=== PATIENT | female | born 1975 | race Caucasian/White ===

== ENCOUNTER 2016-10-20 14:00 | Emergency (ER) | payer OTHER ==
[2016-10-20] MEDS ORDERED: METOCLOPRAMIDE INJ 10MG/2ML VIAL (J2765) As Ordered ONE (15:51)
[2016-10-20] MEDS ORDERED: KETOROLAC 30 MG/ML VIAL (J1885) As Ordered ONE (15:52)
[2016-10-20] MEDS ORDERED: diphenhydrAMINE INJ 50MG/ML VIAL (J1200) As Ordered ONE (15:52)
--- NOTE | 2016-10-20 17:14 | EDDOCDS ---
Nurse's Notes [facility] Name: Edwina Castro Age: 41 yrs Sex: Female : 1975 Arrival Date: 10/20/2016 Time: 14:00 Bed I8 / 16 Private MD: Humza Rush Diagnosis: Migraine Presentation: 10/20 14:07 Presenting complaint: Patient states: "migraine" since this past night. This jjr patient has no additional risk factors. Adult Sepsis Screening: The patient does not have new or worsening altered mentation. Patient's respiratory rate is less than 22. Systolic blood pressure is greater than 100. Patient has a qSOFA score of 0- Negative Sepsis Screen. Suicide/Homicide risk assessment- the patient denies having any suicidal and/or homicidal ideations and does not present with any other emotional, behavioral or mental health complaints. Status: Patient is not a emergency medical service manager or dependent. Transition of care: patient was not received from another setting of care. 14:07 Acuity: MARY ANNE Level 4 r 14:07 Method Of Arrival: Walkin/Carried/Asstd jjr Triage Assessment: 14:09 Headache History: This headache is like all previous headaches. General: Appears jjr uncomfortable. Pain: Pain currently is 8 out of 10 on a pain scale. Pain began 2-3 days ago Also complains of nausea. HIV screening NA for this visit Offered previously. Neurological: No deficits noted. Reports headache. 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 Excederin Migraine 2 tabs as needed every 6 hours (Last dose: 10/20/2016 10:00) 2. Naprosyn 500 mg Oral tab 1 tab every 12 hours as needed (Last dose: 10/20/2016 10:00) - PMHx: Asthma; Migraines; - PSHx: Breast biopsy- Left; - Social history: Smoking status: Patient states was never smoker of tobacco. No barriers to communication noted, The patient speaks fluent [place] Rican. - Family history: Not pertinent. - : The pt / caregiver states he / she is not on anticoagulants. Home medication list is obtained from the patient. - Exposure Risk Screening:: None identified. Screenin:12 Screening information is obtained from the patient. Fall risk: No risks identified. dls Assistance ADL's: requires no assistance with activities of daily living. Abuse/DV Screen: The patient / caregiver reports he/she is: not in a situation that causes fear, pain or injury. Nutritional screening: No deficits noted. Advance Directives: Currently, there is no health care proxy. There is no active DNR order. There is no living will. There is no Power of Coke Still Cleaner. Advance directive information has not previously been placed in an [facility] medical record. home support is adequate. Assessment: 16:10 General: Appears distressed, well developed, well nourished, well groomed, Behavior is dls cooperative. Pain: Pain currently is 7 out of 10 on a pain scale. Cardiovascular: No deficits noted. Respiratory: No deficits noted. GI: Reports nausea. : No deficits noted. Derm: No deficits noted. Musculoskeletal: No deficits noted. Vital Signs: 14:01 BP 126 / 81; Pulse 94; Resp 18 S; Temp 97.8(O); Pulse Ox 98% on R/A; Weight 76.2 kg dd6 (R); Height 5 ft. 3 in. (160.02 cm) (R); 17:03 BP 105 / 65; Pulse 74; Resp 16; Temp 97.5; Pulse Ox 100% ; Pain 2/10; jlf 14:01 Body Mass Index 29.76 (76.20 kg, 160.02 cm) dd6 Vitals: 14:01 Log In Time: October 20, 2016 at 14:00. dd6 ED Course: 14:01 Patient visited by Osman Georges PCA. dd6 14:01 Humza Rush is Private Physician. dd6 14:01 Patient moved to Waiting dd6 14:02 Patient moved to Pre RCE dd6 14:08 Triage Initiated jjr 14:57 Patient moved to I8 / 16 ar3 15:29 [facility]. ke 15:29 Patient visited by Cristi Vega FNP. ke 15:29 Patient visited by Cristi Vega FNP. ke 15:56 Patient visited by Chica Hampton PCA. jlf 16:12 The patient / caregiver is instructed regarding the plan of care and ED course. Patient dls has correct armband on for positive identification. Bed in low position. Call light in reach. 16:12 Inserted saline lock: 20 gauge in left antecubital area and blood collected. The dls patient tolerated the procedure well. 16:20 Patient visited by Cristi Vega FNP. ke 16:49 Patient visited by Cristi Vega FNP. ke 17:01 Humza Rush is Referral Physician. ke 17:03 Patient visited by Chica Hampton, SERVER SECURITY ADMINISTRATOR. angela 17:04 Patient visited by Chica Hampton, TARA. jl 17:11 Discontinued IV lock intact, bleeding controlled, pressure dressing applied, No dls redness/swelling at site. No procedures done that require assistance. Administered Medications: 16:08 Drug: diphenhydrAMINE 50 mg [diphenhydramine 50 mg/mL injection solution (1 mL)] Route: dls IVP; Site: left antecubital; 17:10 Follow up: Response: Pain is decreased dls 16:08 Drug: ketorolac 30 mg [ketorolac 30 mg/mL (1 mL) injection solution (1 mL)] Route: IVP; dls Site: left antecubital; 17:10 Follow up: Response: Pain is decreased dls 16:09 Drug: NS 0.9% 1000 ml [sodium chloride 0.9 % intravenous solution] Route: IV; Rate: dls bolus; Site: left antecubital; 17:11 Follow up: IV Status: Completed infusion dls 16:09 Drug: Metoclopramide 10 mg [metoclopramide 5 mg/mL injection solution] Route: IV; Rate: dls 40 mg/hr; Infused Over: 15 mins; Site: left antecubital; 16:42 Follow up: IV Status: Completed infusion dls 17:11 Follow up: IV Status: Completed infusion dls Order Results: There are currently no results for this order. Outcome: 17:01 Discharge ordered by Provider. ke 17:12 Discharge Assessment: Patient awake, alert and oriented x 3. No cognitive and/or dls functional deficits noted. Patient verbalized understanding of disposition instructions. patient administered narcotics - no. The following High Risk Discharge criteria are identified: None. Discharged to home ambulatory. Condition: stable Condition: improved. Discharge instructions given to patient, Instructed on discharge instructions, follow up and referral plans. medication usage, Demonstrated understanding of instructions, medications, Pt was receptive of discharge instructions/ teaching. Prescriptions given X 1. No special radiology studies were completed. Property sent home with patient. 17:12 Patient left the ED. dls Signatures: Deisi Ching, RN RN dls Cristi Vega, PRESS OPERATOR PRESS OPERATOR Shonda Diaz RN RN deepr Osman Georges, SERVER SECURITY ADMINISTRATOR SERVER SECURITY ADMINISTRATOR dd6 Bianca Carmichael, SERVER SECURITY ADMINISTRATOR SERVER SECURITY ADMINISTRATOR ar3 Chica Hampton, SERVER SECURITY ADMINISTRATOR SERVER SECURITY ADMINISTRATOR jlf MTDD
--- NOTE | 2016-10-20 17:14 | EDDOCDS ---
Physician Documentation [facility] Name: Edwina Castro Age: 41 yrs Sex: Female : 1975 Arrival Date: 10/20/2016 Time: 14:00 Bed I8 / 16 Private MD: Humza Rush Disposition: 10/20/16 17:01 Discharged to Home/Self Care. Impression: Migraine. - Condition is Stable. - Discharge Instructions: Migraine Headache. - Prescriptions for Reglan 10 mg Oral Tablet - take 1 tablet by ORAL route every 6 hours take 30 minutes before meals and at bedtime; 20 tablet. - Medication Reconciliation, Local Pharmacy Hours form. - Follow up: Humza Rush; When: 4 - 5 days; Reason: Recheck today's complaints, Continuance of care. - Problem is an acute exacerbation. - Symptoms have improved. Historical: - Allergies: Bactrim (Hives); Levaquin (Hives); - Home Meds: 1. Excederin Migraine 2 tabs as needed every 6 hours (Last dose: 10/20/2016 10:00) 2. Naprosyn 500 mg Oral tab 1 tab every 12 hours as needed (Last dose: 10/20/2016 10:00) - PMHx: Asthma; Migraines; - PSHx: Breast biopsy- Left; - Social history: Smoking status: Patient states was never smoker of tobacco. No barriers to communication noted, The patient speaks fluent South African. - Family history: Not pertinent. - : The pt / caregiver states he / she is not on anticoagulants. Home medication list is obtained from the patient. - Exposure Risk Screening:: None identified. 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 3 in. (160.02 cm) (R); 17:03 BP 105 / 65; Pulse 74; Resp 16; Temp 97.5; Pulse Ox 100% ; Pain 2/10; jlf 14:01 Body Mass Index 29.76 (76.20 kg, 160.02 cm) dd6 MDM: 15:46 NS 0.9% 1000 ml IV at bolus once ordered. ke 15:46 IV Saline Lock ordered. ke 15:46 Metoclopramide 10 mg IV at 40 mg/hr once over 15 mins ordered. ke 15:46 diphenhydrAMINE 50 mg IVP once ordered. ke 15:46 ketorolac 30 mg IVP once ordered. ke 16:40 Financial registration complete. zo Administered Medications: 16:08 Drug: diphenhydrAMINE 50 mg [diphenhydramine 50 mg/mL injection solution (1 mL)] Route: dls IVP; Site: left antecubital; 17:10 Follow up: Response: Pain is decreased dls 16:08 Drug: ketorolac 30 mg [ketorolac 30 mg/mL (1 mL) injection solution (1 mL)] Route: IVP; dls Site: left antecubital; 17:10 Follow up: Response: Pain is decreased dls 16:09 Drug: NS 0.9% 1000 ml [sodium chloride 0.9 % intravenous solution] Route: IV; Rate: dls bolus; Site: left antecubital; 17:11 Follow up: IV Status: Completed infusion dls 16:09 Drug: Metoclopramide 10 mg [metoclopramide 5 mg/mL injection solution] Route: IV; Rate: dls 40 mg/hr; Infused Over: 15 mins; Site: left antecubital; 16:42 Follow up: IV Status: Completed infusion dls 17:11 Follow up: IV Status: Completed infusion dls Signatures: Deisi Ching RN Cristi Suazo, RELAY ENGINEER RELAY ENGINEER Manuel Powell Jessica RN RN jjr MTDD
--- NOTE | 2016-10-22 18:14 | EDDOCDS ---
Physician Documentation [facility] Name: Edwina Castro Age: 41 yrs Sex: Female : 1975 Arrival Date: 10/20/2016 Time: 14:00 Bed I8 / 16 Private MD: Humza Rush Disposition: 10/20/16 17:01 Discharged to Home/Self Care. Impression: Migraine. - Condition is Stable. - Discharge Instructions: Migraine Headache. - Prescriptions for Reglan 10 mg Oral Tablet - take 1 tablet by ORAL route every 6 hours take 30 minutes before meals and at bedtime; 20 tablet. - Medication Reconciliation, Local Pharmacy Hours form. - Follow up: Humza Rush; When: 4 - 5 days; Reason: Recheck today's complaints, Continuance of care. - Problem is an acute exacerbation. - Symptoms have improved. Historical: - Allergies: Bactrim (Hives); Levaquin (Hives); - Home Meds: 1. Excederin Migraine 2 tabs as needed every 6 hours (Last dose: 10/20/2016 10:00) 2. Naprosyn 500 mg Oral tab 1 tab every 12 hours as needed (Last dose: 10/20/2016 10:00) - PMHx: Asthma; Migraines; - PSHx: Breast biopsy- Left; - Social history: Smoking status: Patient states was never smoker of tobacco. No barriers to communication noted, The patient speaks fluent [place]. - Family history: Not pertinent. - : The pt / caregiver states he / she is not on anticoagulants. Home medication list is obtained from the patient. - Exposure Risk Screening:: None identified. 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 3 in. (160.02 cm) (R); 17:03 BP 105 / 65; Pulse 74; Resp 16; Temp 97.5; Pulse Ox 100% ; Pain 2/10; jlf 14:01 Body Mass Index 29.76 (76.20 kg, 160.02 cm) dd6 MDM: 15:46 NS 0.9% 1000 ml IV at bolus once ordered. ke 15:46 IV Saline Lock ordered. ke 15:46 Metoclopramide 10 mg IV at 40 mg/hr once over 15 mins ordered. ke 15:46 diphenhydrAMINE 50 mg IVP once ordered. ke 15:46 ketorolac 30 mg IVP once ordered. ke 16:40 Financial registration complete. zo 17:23 [facility] [place] Agreement was scanned into [employer] and attached to record. zo 20:27 T-Sheet-- Draft Copy was scanned into [employer] and attached to record. klr Administered Medications: 16:08 Drug: diphenhydrAMINE 50 mg [diphenhydramine 50 mg/mL injection solution (1 mL)] Route: dls IVP; Site: left antecubital; 17:10 Follow up: Response: Pain is decreased dls 16:08 Drug: ketorolac 30 mg [ketorolac 30 mg/mL (1 mL) injection solution (1 mL)] Route: IVP; dls Site: left antecubital; 17:10 Follow up: Response: Pain is decreased dls 16:09 Drug: NS 0.9% 1000 ml [sodium chloride 0.9 % intravenous solution] Route: IV; Rate: dls bolus; Site: left antecubital; 17:11 Follow up: IV Status: Completed infusion dls 16:09 Drug: Metoclopramide 10 mg [metoclopramide 5 mg/mL injection solution] Route: IV; Rate: dls 40 mg/hr; Infused Over: 15 mins; Site: left antecubital; 16:42 Follow up: IV Status: Completed infusion dls 17:11 Follow up: IV Status: Completed infusion dls Signatures: Deisi Ching RN RN Cristi Pitts, COMMUNICATIONS SUPERINTENDENT COMMUNICATIONS SUPERINTENDENT Manuel Powell Jessica RN RN Juliet Hamilton The chart was reviewed and I authenticate all verbal orders and agree with the evaluation and treatment provided.Attachments: 17:23 [facility] Payment Agreement zo 20:27 T-Sheet-- Draft Copy klr Chart Complete MTDD
--- NOTE | 2016-10-22 18:14 | EDDOCDS ---
Physician Documentation [facility] Name: Edwina Castro Age: 41 yrs Sex: Female : 1975 Arrival Date: 10/20/2016 Time: 14:00 Bed I8 / 16 Private MD: Humza Rush Disposition: 10/20/16 17:01 Discharged to Home/Self Care. Impression: Migraine. - Condition is Stable. - Discharge Instructions: Migraine Headache. - Prescriptions for Reglan 10 mg Oral Tablet - take 1 tablet by ORAL route every 6 hours take 30 minutes before meals and at bedtime; 20 tablet. - Medication Reconciliation, Local Pharmacy Hours form. - Follow up: Humza Rush; When: 4 - 5 days; Reason: Recheck today's complaints, Continuance of care. - Problem is an acute exacerbation. - Symptoms have improved. Historical: - Allergies: Bactrim (Hives); Levaquin (Hives); - Home Meds: 1. Excederin Migraine 2 tabs as needed every 6 hours (Last dose: 10/20/2016 10:00) 2. Naprosyn 500 mg Oral tab 1 tab every 12 hours as needed (Last dose: 10/20/2016 10:00) - PMHx: Asthma; Migraines; - PSHx: Breast biopsy- Left; - Social history: Smoking status: Patient states was never smoker of tobacco. No barriers to communication noted, The patient speaks fluent Mongolian. - Family history: Not pertinent. - : The pt / caregiver states he / she is not on anticoagulants. Home medication list is obtained from the patient. - Exposure Risk Screening:: None identified. 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 3 in. (160.02 cm) (R); 17:03 BP 105 / 65; Pulse 74; Resp 16; Temp 97.5; Pulse Ox 100% ; Pain 2/10; jlf 14:01 Body Mass Index 29.76 (76.20 kg, 160.02 cm) dd6 MDM: 15:46 NS 0.9% 1000 ml IV at bolus once ordered. ke 15:46 IV Saline Lock ordered. ke 15:46 Metoclopramide 10 mg IV at 40 mg/hr once over 15 mins ordered. ke 15:46 diphenhydrAMINE 50 mg IVP once ordered. ke 15:46 ketorolac 30 mg IVP once ordered. ke 16:40 Financial registration complete. zo 17:23 [facility] Payment Agreement was scanned into [employer] and attached to record. zo 20:27 T-Sheet-- Draft Copy was scanned into [employer] and attached to record. klr Administered Medications: 16:08 Drug: diphenhydrAMINE 50 mg [diphenhydramine 50 mg/mL injection solution (1 mL)] Route: dls IVP; Site: left antecubital; 17:10 Follow up: Response: Pain is decreased dls 16:08 Drug: ketorolac 30 mg [ketorolac 30 mg/mL (1 mL) injection solution (1 mL)] Route: IVP; dls Site: left antecubital; 17:10 Follow up: Response: Pain is decreased dls 16:09 Drug: NS 0.9% 1000 ml [sodium chloride 0.9 % intravenous solution] Route: IV; Rate: dls bolus; Site: left antecubital; 17:11 Follow up: IV Status: Completed infusion dls 16:09 Drug: Metoclopramide 10 mg [metoclopramide 5 mg/mL injection solution] Route: IV; Rate: dls 40 mg/hr; Infused Over: 15 mins; Site: left antecubital; 16:42 Follow up: IV Status: Completed infusion dls 17:11 Follow up: IV Status: Completed infusion dls Signatures: Deisi Ching RN RN Cristi Pitts, PHARMACIST IN CHARGE PHARMACIST IN CHARGE Manuel Powell Jessica RN RN Juliet Hamilton The chart was reviewed and I authenticate all verbal orders and agree with the evaluation and treatment provided.Attachments: 17:23 [facility] Payment Agreement zo 20:27 T-Sheet-- Draft Copy klr Chart Complete MTDD
--- NOTE | 2016-10-22 18:14 | EDDOCDS ---
Nurse's Notes [facility] Name: Edwina Castro Age: 41 yrs Sex: Female : 1975 Arrival Date: 10/20/2016 Time: 14:00 Bed I8 / 16 Private MD: Humza Rush Diagnosis: Migraine Presentation: 10/20 14:07 Presenting complaint: Patient states: "migraine" since this past night. This jjr patient has no additional risk factors. Adult Sepsis Screening: The patient does not have new or worsening altered mentation. Patient's respiratory rate is less than 22. Systolic blood pressure is greater than 100. Patient has a qSOFA score of 0- Negative Sepsis Screen. Suicide/Homicide risk assessment- the patient denies having any suicidal and/or homicidal ideations and does not present with any other emotional, behavioral or mental health complaints. 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 Transition of care: patient was not received from another setting of care. 14:07 Acuity: MARY ANNE Level 4 r 14:07 Method Of Arrival: Walkin/Carried/Asstd jjr Triage Assessment: 14:09 Headache History: This headache is like all previous headaches. General: Appears jjr uncomfortable. Pain: Pain currently is 8 out of 10 on a pain scale. Pain began 2-3 days ago Also complains of nausea. HIV screening NA for this visit Offered previously. Neurological: No deficits noted. Reports headache. 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 Excederin Migraine 2 tabs as needed every 6 hours (Last dose: 10/20/2016 10:00) 2. Naprosyn 500 mg Oral tab 1 tab every 12 hours as needed (Last dose: 10/20/2016 10:00) - PMHx: Asthma; Migraines; - PSHx: Breast biopsy- Left; - Social history: Smoking status: Patient states was never smoker of tobacco. No barriers to communication noted, The patient speaks fluent Bhutanese. - Family history: Not pertinent. - : The pt / caregiver states he / she is not on anticoagulants. Home medication list is obtained from the patient. - Exposure Risk Screening:: None identified. Screenin:12 Screening information is obtained from the patient. Fall risk: No risks identified. dls Assistance ADL's: requires no assistance with activities of daily living. Abuse/DV Screen: The patient / caregiver reports he/she is: not in a situation that causes fear, pain or injury. Nutritional screening: No deficits noted. Advance Directives: Currently, there is no health care proxy. There is no active DNR order. There is no living will. There is no Power of Commissary Steward. Advance directive information has not previously been placed in an [facility] medical record. home support is adequate. Assessment: 16:10 General: Appears distressed, well developed, well nourished, well groomed, Behavior is dls cooperative. Pain: Pain currently is 7 out of 10 on a pain scale. Cardiovascular: No deficits noted. Respiratory: No deficits noted. GI: Reports nausea. : No deficits noted. Derm: No deficits noted. Musculoskeletal: No deficits noted. Vital Signs: 14:01 BP 126 / 81; Pulse 94; Resp 18 S; Temp 97.8(O); Pulse Ox 98% on R/A; Weight 76.2 kg dd6 (R); Height 5 ft. 3 in. (160.02 cm) (R); 17:03 BP 105 / 65; Pulse 74; Resp 16; Temp 97.5; Pulse Ox 100% ; Pain 2/10; jlf 14:01 Body Mass Index 29.76 (76.20 kg, 160.02 cm) dd6 Vitals: 14:01 Log In Time: October 20, 2016 at 14:00. dd6 ED Course: 14:01 Patient visited by Osman Georges PCA. dd6 14:01 Humza Rush is Private Physician. dd6 14:01 Patient moved to Waiting dd6 14:02 Patient moved to Pre RCE dd6 14:08 Triage Initiated jjr 14:57 Patient moved to I8 / 16 ar3 15:29 [facility]. ke 15:29 Patient visited by Cristi Vega FNP. ke 15:29 Patient visited by Cristi Vega FNP. ke 15:56 Patient visited by Chica Hampton PCA. jlf 16:12 The patient / caregiver is instructed regarding the plan of care and ED course. Patient dls has correct armband on for positive identification. Bed in low position. Call light in reach. 16:12 Inserted saline lock: 20 gauge in left antecubital area and blood collected. The dls patient tolerated the procedure well. 16:20 Patient visited by Cristi Vega FNP. ke 16:49 Patient visited by Cristi Vega FNP. ke 17:01 Humza Rush is Referral Physician. ke 17:03 Patient visited by Chica Hampton, LINOTYPE OPERATOR. angela 17:04 Patient visited by Chica Hampton, TARA. jlf 17:11 Discontinued IV lock intact, bleeding controlled, pressure dressing applied, No dls redness/swelling at site. No procedures done that require assistance. 17:23 [facility] [place] was scanned into [employer] and attached to record. zo 20:27 T-Sheet-- Draft Copy was scanned into [employer] and attached to record. klr Administered Medications: 16:08 Drug: diphenhydrAMINE 50 mg [diphenhydramine 50 mg/mL injection solution (1 mL)] Route: dls IVP; Site: left antecubital; 17:10 Follow up: Response: Pain is decreased dls 16:08 Drug: ketorolac 30 mg [ketorolac 30 mg/mL (1 mL) injection solution (1 mL)] Route: IVP; dls Site: left antecubital; 17:10 Follow up: Response: Pain is decreased dls 16:09 Drug: NS 0.9% 1000 ml [sodium chloride 0.9 % intravenous solution] Route: IV; Rate: dls bolus; Site: left antecubital; 17:11 Follow up: IV Status: Completed infusion dls 16:09 Drug: Metoclopramide 10 mg [metoclopramide 5 mg/mL injection solution] Route: IV; Rate: dls 40 mg/hr; Infused Over: 15 mins; Site: left antecubital; 16:42 Follow up: IV Status: Completed infusion dls 17:11 Follow up: IV Status: Completed infusion dls Order Results: There are currently no results for this order. Outcome: 17:01 Discharge ordered by Provider. ke 17:12 Discharge Assessment: Patient awake, alert and oriented x 3. No cognitive and/or dls functional deficits noted. Patient verbalized understanding of disposition instructions. patient administered narcotics - no. The following High Risk Discharge criteria are identified: None. Discharged to home ambulatory. Condition: stable Condition: improved. Discharge instructions given to patient, Instructed on discharge instructions, follow up and referral plans. medication usage, Demonstrated understanding of instructions, medications, Pt was receptive of discharge instructions/ teaching. Prescriptions given X 1. No special radiology studies were completed. Property sent home with patient. 17:12 Patient left the ED. dls Signatures: Deisi Ching, LALY RN Cristi Pitts, FOOT MITER OPERATOR FOOT MITER OPERATOR Manuel Powell Jessica, RN RN Osman Osborne, LINOTYPE OPERATOR LINOTYPE OPERATOR dd6 Bianca Carmichael, LINOTYPE OPERATOR LINOTYPE OPERATOR ar3 Chica Hampton, LINOTYPE OPERATOR LINOTYPE OPERATOR Juliet Spears Chart Complete MTDEmerald
== END 2016-10-20 17:12 | disposition home or self-care (01) ==
LOC: M ED 14:00
DX: G43.909 Migraine, unspecified, not intractable, without status migrainosus (principal); J45.909 Unspecified asthma, uncomplicated; Z88.1 Allergy status to other antibiotic agents
CPT/HCPCS: 36415; 96365; 96375; 99284; J1200; J1885; J2765

== ENCOUNTER 2016-11-14 14:50 | Emergency (ER) | payer OTHER ==
[2016-11-14] MEDS ORDERED: diphenhydrAMINE INJ 50MG/ML VIAL (J1200) As Ordered ONE (16:09)
[2016-11-14] MEDS ORDERED: MORPHINE 4 MG/ML 1ML SYRINGE As Ordered ONE (16:09)
[2016-11-14] MEDS ORDERED: METOCLOPRAMIDE INJ 10MG/2ML VIAL (J2765) As Ordered ONE (16:09)
--- NOTE | 2016-11-14 17:38 | EDDOCDS ---
Nurse's Notes [facility] Name: Edwina Castro Age: 41 yrs Sex: Female : 1975 Arrival Date: 11/14/2016 Time: 14:50 Bed I5 / M5 Private MD: [facility] - [facility] Diagnosis: Migraine without aura, not intractable Presentation: 11/14 15:04 Presenting complaint: Patient states: migraine headache since Friday night today felt [facility] like she was going to pass out. has f/u appt with Dr Gonzales 12-13-16. This patient has no additional risk factors. Adult Sepsis Screening: The patient does not have new or worsening altered mentation. Patient's respiratory rate is less than 22. Systolic blood pressure is greater than 100. Patient has a qSOFA score of 0- Negative Sepsis Screen. Suicide/Homicide risk assessment- the patient denies having any suicidal and/or homicidal ideations and does not present with any other emotional, behavioral or mental health complaints. 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 Transition of care: patient was not received from another setting of care. 15:04 Acuity: MARY ANNE Level 3 [facility] 15:04 Method Of Arrival: Walkin/Carried/Asstd [facility] Triage Assessment: 15:07 Headache History: This headache is like all previous headaches. General: Appears [facility] uncomfortable, Behavior is appropriate for age, pleasant. Pain: Location: entire head and back of neck Pain currently is 7 out of 10 on a pain scale. Pt Declines HIV testing. Neurological: Level of Consciousness is awake, alert, Oriented to person, place, time, Reports headache lightheaded. Respiratory: Airway is patent Respiratory effort is even, unlabored, Respiratory pattern is regular, symmetrical. Derm: Skin is pink, warm & dry. 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 Excederin Migraine 2 tabs as needed every 6 hours as needed (Last dose: 11/13/2016) 2. Naprosyn 500 mg Oral tab 1 tab every 12 hours as needed (Last dose: 11/14/2016 10:00) - PMHx: Migraines; Asthma; - PSHx: Breast biopsy- Left; - Social history: Smoking status: Patient states was never smoker of tobacco. No barriers to communication noted, The patient speaks fluent Nigerien. - : The pt / caregiver states he / she is not on anticoagulants. Home medication list is obtained from the patient. - Exposure Risk Screening:: None identified. Screenin:45 Screening information is obtained from the patient. Primary language is Nigerien. Fall jam1 risk: No risks identified. Assistance ADL's: requires no assistance with activities of daily living. Abuse/DV Screen: The patient / caregiver reports he/she is: not in a situation that causes fear, pain or injury. Nutritional screening: No deficits noted. Exposure Risk Screening: None identified. Advance Directives: Currently, there is no health care proxy. There is no active DNR order. There is no living will. There is no Power of Molder Shoulder Pad. Advance directive information has not previously been placed in an [facility] medical record. Further advance directive information is declined. home support is adequate. Assessment: 16:22 General: Appears in no apparent distress, well nourished, well groomed, Behavior is jjr appropriate for age. Pain: Location: entire head. Neurological: Reports headache. Respiratory: No deficits noted. GI: Reports nausea. Derm: No deficits noted. 17:21 General: Appears in no apparent distress, reports MARES 3/10. jjr Vital Signs: 14:52 BP 106 / 74; Pulse 100; Resp 18 S; Temp 98.5(O); Pulse Ox 98% on R/A; Weight 76.2 kg gr2 (R); Height 5 ft. 3 in. (160.02 cm) (R); Pain 9/10; 16:42 BP 100 / 65; Pulse 74; Resp 20; Temp 97.0; Pulse Ox 98% ; Pain 3/10; jam1 16:46 Pain 3/10; jjr 17:37 BP 100 / 61; Pulse 75; Resp 18; Temp 97.5(O); Pulse Ox 99% on R/A; Pain 3/10; jjr 14:52 Body Mass Index 29.76 (76.20 kg, 160.02 cm) gr2 Vitals: 14:52 Log In Time: November 14, 2016 at 14:52. gr2 ED Course: 14:51 Patient visited by Katerin Millan. gr2 14:51 [facility] is Private Physician. gr2 14:51 Patient moved to Waiting gr2 14:53 Patient visited by Katerin Millan. gr2 14:53 Patient moved to Pre RCE gr2 15:05 Triage Initiated kpj 15:12 Patient moved to Triage 2 [facility] 15:23 Dariana Bae [facility]-C [facility]. dt4 15:23 Kamlesh Shen MD is Attending Physician. dt4 15:23 Patient visited by Dariana Bae PA-C. dt4 15:44 Patient moved to I5 / M5 [facility] 15:45 Pt greeted and oriented to ED. Patient advised of names of staff involved in care, jam1 location of call li, wait times and NPO status. Patient has correct armband on for positive identification. Placed in gown. Bed in low position. Call light in reach. Side rails up X 1. 16:22 Patient visited by Shonda Millan RN. jjr 16:22 The patient / caregiver is instructed regarding the plan of care and ED course. jjr 16:22 Inserted saline lock: 20 gauge in left antecubital area. jjr 17:22 Patient visited by Shonda Millan RN. jjr 17:37 Discontinued lock intact, bleeding controlled, pressure dressing applied, No jjr redness/swelling at site. No procedures done that require assistance. Administered Medications: 16:21 Drug: morphine 4 mg [morphine 4 mg/mL intravenous cartridge (1 mL)] Route: IVP; Site: jjr left antecubital; 16:46 Follow up: Pain 11/29 Adult jjr 16:21 Drug: Metoclopramide 20 mg [metoclopramide 5 mg/mL injection solution] Route: IV; Rate: jjr 80 mg/hr; Infused Over: 15 mins; Site: left antecubital; Delivery: Syringe pump; 16:46 Follow up: IV Status: Completed infusion jjr 16:21 Drug: diphenhydrAMINE 12.5 mg [diphenhydramine 50 mg/mL injection solution (0.25 mL)] jjr Route: IVP; Site: left antecubital; 16:21 Drug: NS 0.9% 1000 ml [sodium chloride 0.9 % intravenous solution] Route: IV; Rate: jjr bolus; Site: left antecubital; 17:21 Follow up: IV Status: Completed infusion; IV Intake: 1000ml jjr Intake: 17:21 IV: 1000.00ml; Total: 1000.00ml. jjr Order Results: There are currently no results for this order. Outcome: 17:23 Discharge ordered by Provider. dt4 17:37 Discharge Assessment: patient administered narcotics - yes. Pt provided with safe jjr discharge. The following High Risk Discharge criteria are identified: None. Discharged to home ambulatory, with friend. Condition: stable. Discharge instructions given to patient, Instructed on discharge instructions, follow up and referral plans. Demonstrated understanding of instructions. No special radiology studies were completed. Property sent home with patient. 17:38 Patient left the ED. jjr Signatures: Romy Sanchez RN Diana Paz RN Keli Conte, TARA EARLY CHILDHOOD LEAD TEACHER jam1 Shonda Millan RN RN jjr Hafner, Jane, RN RN [facility] Katerin Millan 2 Dariana Bae PA-C PAJessica dt4 Corrections: (The following items were deleted from the chart) 15:10 15:04 Presenting complaint: Patient states: migraine headache since Friday night today ashvin felt like she was going to pass out. ashvin MTDD
--- NOTE | 2016-11-14 17:38 | EDDOCDS ---
Physician Documentation [facility] Name: Edwina Castro Age: 41 yrs Sex: Female : 1975 Arrival Date: 11/14/2016 Time: 14:50 Bed I5 / M5 Private MD: [facility] - [facility] Disposition: 11/14/16 17:23 Discharged to Home/Self Care. Impression: Migraine without aura, not intractable. - Condition is Stable. - Discharge Instructions: Migraine Headache. - Medication Reconciliation, Local Pharmacy Hours form. - Follow up: Emergency Department; When: As needed; Reason: Worsening of conditions. Follow up: Private Physician; When: 2 - 3 days; Reason: Wound/Symptom Recheck, Recheck today's complaints, Continuance of care. - Problem is new. - Symptoms have improved. Historical: - Allergies: Bactrim (Hives); Levaquin (Hives); - Home Meds: 1. Excederin Migraine 2 tabs as needed every 6 hours as needed (Last dose: 11/13/2016) 2. Naprosyn 500 mg Oral tab 1 tab every 12 hours as needed (Last dose: 11/14/2016 10:00) - PMHx: Migraines; Asthma; - PSHx: Breast biopsy- Left; - Social history: Smoking status: Patient states was never smoker of tobacco. No barriers to communication noted, The patient speaks fluent Bulgarian. - : The pt / caregiver states he / she is not on anticoagulants. Home medication list is obtained from the patient. - Exposure Risk Screening:: None identified. R D INTERNSHIP: 11/14 15:07 LMP 10/27/2016 [facility] Vital Signs: 14:52 BP 106 / 74; Pulse 100; Resp 18 S; Temp 98.5(O); Pulse Ox 98% on R/A; Weight 76.2 kg / gr2 167.99 lbs (R); Height 5 ft. 3 in. (160.02 cm) (R); Pain 9/10; 16:42 BP 100 / 65; Pulse 74; Resp 20; Temp 97.0; Pulse Ox 98% ; Pain 3/10; jam1 16:46 Pain 3/10; jjr 17:37 BP 100 / 61; Pulse 75; Resp 18; Temp 97.5(O); Pulse Ox 99% on R/A; Pain 3; jjr 14:52 Body Mass Index 29.76 (76.20 kg, 160.02 cm) gr2 MDM: 15:27 Financial registration complete. lg 15:43 morphine 4 mg IVP once ordered. dt4 15:43 Metoclopramide 20 mg IV at 80 mg/hr once over 15 mins ordered. dt4 15:43 diphenhydrAMINE 12.5 mg IVP once ordered. dt4 15:43 NS 0.9% 1000 ml IV at bolus once ordered. dt4 15:43 IV Saline Lock ordered. dt4 Administered Medications: 16:21 Drug: morphine 4 mg [morphine 4 mg/mL intravenous cartridge (1 mL)] Route: IVP; Site: jjr left antecubital; 16:46 Follow up: Pain 3 Adult jjr 16:21 Drug: Metoclopramide 20 mg [metoclopramide 5 mg/mL injection solution] Route: IV; Rate: jjr 80 mg/hr; Infused Over: 15 mins; Site: left antecubital; Delivery: Syringe pump; 16:46 Follow up: IV Status: Completed infusion jjr 16:21 Drug: diphenhydrAMINE 12.5 mg [diphenhydramine 50 mg/mL injection solution (0.25 mL)] jjr Route: IVP; Site: left antecubital; 16:21 Drug: NS 0.9% 1000 ml [sodium chloride 0.9 % intravenous solution] Route: IV; Rate: jjr bolus; Site: left antecubital; 17:21 Follow up: IV Status: Completed infusion; IV Intake: 1000ml jjr Signatures: Romy Sanchez, RN RN Haleigh Winters, Bang Reg Shonda Zhang, RN RN jjDariana Cline PA-C PA-C dt4 MTDD
--- NOTE | 2016-11-16 18:38 | EDDOCDS ---
Nurse's Notes [facility] Name: Edwina Castro Age: 41 yrs Sex: Female : 1975 Arrival Date: 11/14/2016 Time: 14:50 Bed I5 / M5 Private MD: [facility] - Adults Diagnosis: Migraine without aura, not intractable Presentation: 11/14 15:04 Presenting complaint: Patient states: migraine headache since Friday night today felt [facility] like she was going to pass out. has f/u appt with Dr Gonzales 12-13-16. This patient has no additional risk factors. Adult Sepsis Screening: The patient does not have new or worsening altered mentation. Patient's respiratory rate is less than 22. Systolic blood pressure is greater than 100. Patient has a qSOFA score of 0- Negative Sepsis Screen. Suicide/Homicide risk assessment- the patient denies having any suicidal and/or homicidal ideations and does not present with any other emotional, behavioral or mental health complaints. Status: Patient is not a manager financial services or dependent. Transition of care: patient was not received from another setting of care. 15:04 Acuity: MARY ANNE Level 3 [facility] 15:04 Method Of Arrival: Walkin/Carried/Asstd [facility] Triage Assessment: 15:07 Headache History: This headache is like all previous headaches. General: Appears [facility] uncomfortable, Behavior is appropriate for age, pleasant. Pain: Location: entire head and back of neck Pain currently is 7 out of 10 on a pain scale. Pt Declines HIV testing. Neurological: Level of Consciousness is awake, alert, Oriented to person, place, time, Reports headache lightheaded. Respiratory: Airway is patent Respiratory effort is even, unlabored, Respiratory pattern is regular, symmetrical. Derm: Skin is pink, warm & dry. 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 Excederin Migraine 2 tabs as needed every 6 hours as needed (Last dose: 11/13/2016) 2. Naprosyn 500 mg Oral tab 1 tab every 12 hours as needed (Last dose: 11/14/2016 10:00) - PMHx: Migraines; Asthma; - PSHx: Breast biopsy- Left; - Social history: Smoking status: Patient states was never smoker of tobacco. No barriers to communication noted, The patient speaks fluent Bangladeshi. - : The pt / caregiver states he / she is not on anticoagulants. Home medication list is obtained from the patient. - Exposure Risk Screening:: None identified. Screenin:45 Screening information is obtained from the patient. Primary language is Bangladeshi. Fall jam1 risk: No risks identified. Assistance ADL's: requires no assistance with activities of daily living. Abuse/DV Screen: The patient / caregiver reports he/she is: not in a situation that causes fear, pain or injury. Nutritional screening: No deficits noted. Exposure Risk Screening: None identified. Advance Directives: Currently, there is no health care proxy. There is no active DNR order. There is no living will. There is no Power of Skip Hoist Operator. Advance directive information has not previously been placed in an [facility] medical record. Further advance directive information is declined. home support is adequate. Assessment: 16:22 General: Appears in no apparent distress, well nourished, well groomed, Behavior is jjr appropriate for age. Pain: Location: entire head. Neurological: Reports headache. Respiratory: No deficits noted. GI: Reports nausea. Derm: No deficits noted. 17:21 General: Appears in no apparent distress, reports MARES 3/10. jjr Vital Signs: 14:52 BP 106 / 74; Pulse 100; Resp 18 S; Temp 98.5(O); Pulse Ox 98% on R/A; Weight 76.2 kg gr2 (R); Height 5 ft. 3 in. (160.02 cm) (R); Pain 9/10; 16:42 BP 100 / 65; Pulse 74; Resp 20; Temp 97.0; Pulse Ox 98% ; Pain 3/10; jam1 16:46 Pain 3/10; jjr 17:37 BP 100 / 61; Pulse 75; Resp 18; Temp 97.5(O); Pulse Ox 99% on R/A; Pain 3/10; jjr 14:52 Body Mass Index 29.76 (76.20 kg, 160.02 cm) gr2 Vitals: 14:52 Log In Time: November 14, 2016 at 14:52. gr2 ED Course: 14:51 Patient visited by Katerin Millan. gr2 14:51 [facility] is Private Physician. gr2 14:51 Patient moved to Waiting gr2 14:53 Patient visited by Katerin Millan. gr2 14:53 Patient moved to Pre RCE gr2 15:05 Triage Initiated kpj 15:12 Patient moved to Triage 2 [facility] 15:23 Dariana Bae [facility]C [facility]. dt4 15:23 Kamlesh Shen MD is Attending Physician. dt4 15:23 Patient visited by Dariana Bae PA-C. dt4 15:44 Patient moved to I5 / M5 [facility] 15:45 Pt greeted and oriented to ED. Patient advised of names of staff involved in care, jam1 location of call li, wait times and NPO status. Patient has correct armband on for positive identification. Placed in gown. Bed in low position. Call light in reach. Side rails up X 1. 16:22 Patient visited by Shonda Millan RN. jjr 16:22 The patient / caregiver is instructed regarding the plan of care and ED course. jjr 16:22 Inserted saline lock: 20 gauge in left antecubital area. jjr 17:22 Patient visited by Shonda Millan RN. jjr 17:37 Discontinued lock intact, bleeding controlled, pressure dressing applied, No jjr redness/swelling at site. No procedures done that require assistance. 11/15 09:33 [facility] Payment Agreement was scanned into [email or web address] and attached to record. lg 18:12 T-Sheet-- Draft Copy was scanned into [email or web address] and attached to record. klr Administered Medications: 11/14 16:21 Drug: morphine 4 mg [morphine 4 mg/mL intravenous cartridge (1 mL)] Route: IVP; Site: jjr left antecubital; 16:46 Follow up: Pain 11/29 Adult jjr 16:21 Drug: Metoclopramide 20 mg [metoclopramide 5 mg/mL injection solution] Route: IV; Rate: jjr 80 mg/hr; Infused Over: 15 mins; Site: left antecubital; Delivery: Syringe pump; 16:46 Follow up: IV Status: Completed infusion jjr 16:21 Drug: diphenhydrAMINE 12.5 mg [diphenhydramine 50 mg/mL injection solution (0.25 mL)] jjr Route: IVP; Site: left antecubital; 16:21 Drug: NS 0.9% 1000 ml [sodium chloride 0.9 % intravenous solution] Route: IV; Rate: jjr bolus; Site: left antecubital; 17:21 Follow up: IV Status: Completed infusion; IV Intake: 1000ml jjr Intake: 17:21 IV: 1000.00ml; Total: 1000.00ml. jjr Order Results: There are currently no results for this order. Outcome: 17:23 Discharge ordered by Provider. dt4 17:37 Discharge Assessment: patient administered narcotics - yes. Pt provided with safe jjr discharge. The following High Risk Discharge criteria are identified: None. Discharged to home ambulatory, with friend. Condition: stable. Discharge instructions given to patient, Instructed on discharge instructions, follow up and referral plans. Demonstrated understanding of instructions. No special radiology studies were completed. Property sent home with patient. 17:38 Patient left the ED. jjr Signatures: Rmoy Sanchez RN LALY [facility] Diana Lopez, RN RN Keli Francisco, TRAIN MASTER TRAIN MASTER jam1 Haleigh Boyle, Reg Reg Shonda Millan RN RN jjr Hafner, Jane,RN LALY [facility] Katerin Millan gr2 Dariana Bae, PAJessica PA-C dt4 [place] Corrections: (The following items were deleted from the chart) 15:10 15:04 Presenting complaint: Patient states: migraine headache since Friday night today [facility] felt like she was going to pass out. [facility] Chart Complete MTDD
--- NOTE | 2016-11-16 18:38 | EDDOCDS ---
Physician Documentation [facility] Name: Edwina Castro Age: 41 yrs Sex: Female : 1975 Arrival Date: 11/14/2016 Time: 14:50 Bed I5 / M5 Private MD: [facility] - Adults Disposition: 11/14/16 17:23 Discharged to Home/Self Care. Impression: Migraine without aura, not intractable. - Condition is Stable. - Discharge Instructions: Migraine Headache. - Medication Reconciliation, Local Pharmacy Hours form. - Follow up: Emergency Department; When: As needed; Reason: Worsening of conditions. Follow up: Private Physician; When: 2 - 3 days; Reason: Wound/Symptom Recheck, Recheck today's complaints, Continuance of care. - Problem is new. - Symptoms have improved. Historical: - Allergies: Bactrim (Hives); Levaquin (Hives); - Home Meds: 1. Excederin Migraine 2 tabs as needed every 6 hours as needed (Last dose: 11/13/2016) 2. Naprosyn 500 mg Oral tab 1 tab every 12 hours as needed (Last dose: 11/14/2016 10:00) - PMHx: Migraines; Asthma; - PSHx: Breast biopsy- Left; - Social history: Smoking status: Patient states was never smoker of tobacco. No barriers to communication noted, The patient speaks fluent Bahraini. - : The pt / caregiver states he / she is not on anticoagulants. Home medication list is obtained from the patient. - Exposure Risk Screening:: None identified. 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 3 in. (160.02 cm) (R); Pain 9/10; 16:42 BP 100 / 65; Pulse 74; Resp 20; Temp 97.0; Pulse Ox 98% ; Pain 3/10; jam1 16:46 Pain 3/10; jjr 17:37 BP 100 / 61; Pulse 75; Resp 18; Temp 97.5(O); Pulse Ox 99% on R/A; Pain 3/10; jjr 14:52 Body Mass Index 29.76 (76.20 kg, 160.02 cm) gr2 MDM: 15:27 Financial registration complete. lg 15:43 morphine 4 mg IVP once ordered. dt4 15:43 Metoclopramide 20 mg IV at 80 mg/hr once over 15 mins ordered. dt4 15:43 diphenhydrAMINE 12.5 mg IVP once ordered. dt4 15:43 NS 0.9% 1000 ml IV at bolus once ordered. dt4 15:43 IV Saline Lock ordered. dt4 11/15 09:33 [facility] Payment Agreement was scanned into [employer] and attached to record. lg 18:12 T-Sheet-- Draft Copy was scanned into [employer] and attached to record. klr Administered Medications: 11/14 16:21 Drug: morphine 4 mg [morphine 4 mg/mL intravenous cartridge (1 mL)] Route: IVP; Site: jjr left antecubital; 16:46 Follow up: Pain 3/10 Adult jjr 16:21 Drug: Metoclopramide 20 mg [metoclopramide 5 mg/mL injection solution] Route: IV; Rate: jjr 80 mg/hr; Infused Over: 15 mins; Site: left antecubital; Delivery: Syringe pump; 16:46 Follow up: IV Status: Completed infusion jjr 16:21 Drug: diphenhydrAMINE 12.5 mg [diphenhydramine 50 mg/mL injection solution (0.25 mL)] jjr Route: IVP; Site: left antecubital; 16:21 Drug: NS 0.9% 1000 ml [sodium chloride 0.9 % intravenous solution] Route: IV; Rate: jjr bolus; Site: left antecubital; 17:21 Follow up: IV Status: Completed infusion; IV Intake: 1000ml jjr Signatures: Romy Sanchez RN RN Haleigh Winters Reg Reg lg Raymond, Jessica, RN RN jjDariana Cline PA-C PA-C dt4 [place] leora The chart was reviewed and I authenticate all verbal orders and agree with the evaluation and treatment provided.Attachments: 11/15 09:33 [facility] Payment Agreement lg 18:12 T-Sheet-- Draft Copy klr Chart Complete MTDD
--- NOTE | 2016-11-16 18:38 | EDDOCDS ---
Physician Documentation [facility] Name: Edwina Castro Age: 41 yrs Sex: Female : 1975 Arrival Date: 11/14/2016 Time: 14:50 Bed I5 / M5 Private MD: [facility] - Adults Disposition: 11/14/16 17:23 Discharged to Home/Self Care. Impression: Migraine without aura, not intractable. - Condition is Stable. - Discharge Instructions: Migraine Headache. - Medication Reconciliation, Local Pharmacy Hours form. - Follow up: Emergency Department; When: As needed; Reason: Worsening of conditions. Follow up: Private Physician; When: 2 - 3 days; Reason: Wound/Symptom Recheck, Recheck today's complaints, Continuance of care. - Problem is new. - Symptoms have improved. Historical: - Allergies: Bactrim (Hives); Levaquin (Hives); - Home Meds: 1. Excederin Migraine 2 tabs as needed every 6 hours as needed (Last dose: 11/13/2016) 2. Naprosyn 500 mg Oral tab 1 tab every 12 hours as needed (Last dose: 11/14/2016 10:00) - PMHx: Migraines; Asthma; - PSHx: Breast biopsy- Left; - Social history: Smoking status: Patient states was never smoker of tobacco. No barriers to communication noted, The patient speaks fluent Hungarian. - : The pt / caregiver states he / she is not on anticoagulants. Home medication list is obtained from the patient. - Exposure Risk Screening:: None identified. 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 3 in. (160.02 cm) (R); Pain 9/10; 16:42 BP 100 / 65; Pulse 74; Resp 20; Temp 97.0; Pulse Ox 98% ; Pain 3/10; jam1 16:46 Pain 3/10; jjr 17:37 BP 100 / 61; Pulse 75; Resp 18; Temp 97.5(O); Pulse Ox 99% on R/A; Pain 3/10; jjr 14:52 Body Mass Index 29.76 (76.20 kg, 160.02 cm) gr2 MDM: 15:27 Financial registration complete. lg 15:43 morphine 4 mg IVP once ordered. dt4 15:43 Metoclopramide 20 mg IV at 80 mg/hr once over 15 mins ordered. dt4 15:43 diphenhydrAMINE 12.5 mg IVP once ordered. dt4 15:43 NS 0.9% 1000 ml IV at bolus once ordered. dt4 15:43 IV Saline Lock ordered. dt4 11/15 09:33 [facility] Payment Agreement was scanned into [employer] and attached to record. lg 18:12 T-Sheet-- Draft Copy was scanned into [employer] and attached to record. klr Administered Medications: 11/14 16:21 Drug: morphine 4 mg [morphine 4 mg/mL intravenous cartridge (1 mL)] Route: IVP; Site: jjr left antecubital; 16:46 Follow up: Pain 3/10 Adult jjr 16:21 Drug: Metoclopramide 20 mg [metoclopramide 5 mg/mL injection solution] Route: IV; Rate: jjr 80 mg/hr; Infused Over: 15 mins; Site: left antecubital; Delivery: Syringe pump; 16:46 Follow up: IV Status: Completed infusion jjr 16:21 Drug: diphenhydrAMINE 12.5 mg [diphenhydramine 50 mg/mL injection solution (0.25 mL)] jjr Route: IVP; Site: left antecubital; 16:21 Drug: NS 0.9% 1000 ml [sodium chloride 0.9 % intravenous solution] Route: IV; Rate: jjr bolus; Site: left antecubital; 17:21 Follow up: IV Status: Completed infusion; IV Intake: 1000ml jjr Signatures: Romy Sanchez RN RN Haleigh Winters Reg Reg lg Raymond, Jessica, RN RN jjDariana Cline PA-C PA-C dt4 [place] leora The chart was reviewed and I authenticate all verbal orders and agree with the evaluation and treatment provided.Attachments: 11/15 09:33 [facility] Payment Agreement lg 18:12 T-Sheet-- Draft Copy klr Chart Complete MTDD
== END 2016-11-14 17:38 | disposition home or self-care (01) ==
LOC: M ED 14:50
DX: G43.909 Migraine, unspecified, not intractable, without status migrainosus (principal); R11.0 Nausea; J45.909 Unspecified asthma, uncomplicated; Z88.1 Allergy status to other antibiotic agents
CPT/HCPCS: 96361; 96365; 96375; 99283; J1200; J2765

== ENCOUNTER 2025-06-19 16:25 | Emergency (ER) | payer MEDICAID, OTHER, SELFPAY ==
[~2025-06-19] VITALS: Ht 160 cm; Wt 95.0 kg
[2025-06-19 16:29] VITALS: TEMP 97.3
[2025-06-19 21:25] VITALS: BP 128/71; O2SAT 98
== END 2025-06-19 21:52 | disposition home or self-care (01) ==
LOC: M ED 16:25
DX: R60.0 Localized edema (principal); E03.9 Hypothyroidism, unspecified; J45.909 Unspecified asthma, uncomplicated; R51.9 Headache, unspecified; Z88.2 Allergy status to sulfonamides; Z88.8 Allergy status to other drugs, medicaments and biological substances